=== PATIENT | male | born 1970 | race Caucasian/White ===

== ENCOUNTER 2016-05-19 14:05 | Emergency (ER) | payer OTHER ==
[~2016-05-19] VITALS: Ht 172.7 cm; Wt 204.0 kg
[~2016-05-19 14:05] MED LIST: ACET-1256 PO; MULT-506 PO; NAPR1TAB9 PO; OXGN; TEST1DIS TOP
[2016-05-19 14:08] VITALS: TEMP 36.9; Ht 172.7 cm; Wt 204.0 kg
[2016-05-19] MEDS ORDERED: CEPH500C2 PO (15:10)
[2016-05-19 15:19] VITALS: BP 141/86; PULSE 73; O2SAT 98
--- NOTE | 2016-05-20 21:45 | EMERGENCY ROOM VISIT NOTE ---
ED Visit Note First contact with patient: 14:19 CHIEF COMPLAINT: Wound Infection. HISTORY OF PRESENT ILLNESS: Mr. Javier is an 45-year-old white male who ambulates into the complaining of a ruptured abscess on his right leg. Patient reports a proximally 6 month ago he noted a soft tissue mass over the posterior aspect of the right knee. He was seen by his PCP and was told it was an infected hair follicle. Initially it was erythematous on initial evaluation. He was given antibiotics and the erythema resolved but the her follicle did not resolve. After the antibiotics he was pain and symptom-free no referral was made. Patient reports that approximately 7:30 AM this morning, approximately 7 hours ago, he reports event the knee felt a popping sensation and had a combination of possibly an bloody drainage from the wound. He reports since that time he can the wound continues to bleed. He reports he tried to and direct pressure but was unsuccessful. He has no additional symptoms including pain in the area of the infected hair follicle, fevers, chills, knee pain, lower leg weakness/ numbness/tingling, abdominal pain, nausea, vomiting, decreased appetite, upper respiratory tract symptoms. REVIEW OF SYSTEMS: As noted above in History of Present Illness; a body systems were reviewed with the patient and found to be negative unless noted above otherwise. PAST MEDICAL HISTORY: As noted above and (1) Borderline hypertension (2) Hypoxia (3) Pneumonia CURRENT MEDICATION: Medications Dose Route/Sig Max Daily Dose Days Date Category Tylenol (Acetaminophen) 500 Mg Tab 1,000 Mg PO DIRECTED PRN 08/12/15 Reported Aleve (Naproxen) 220 Mg Tab 220 Mg PO DIRECTED PRN 08/12/15 Reported Multivitamin (Multivitamins) Tab 1 Tab PO DAILY 08/12/15 Reported Androderm (Testosterone) 4 Mg/24 Hr Dis 4 Mg TOP Q24H 08/12/15 Reported ALLERGIES TO MEDICATION: Patient denies. SOCIAL HISTORY: Patient is not employed; his and feels safe in his home environment; he denies tobacco and alcohol use. PHYSICAL EXAM: Vital Signs: Date Time Temp Pulse Resp B/P Pulse Ox O2 Delivery O2 Flow Rate FiO2 05/19/16 15:19 73 20 141/86 98 05/19/16 14:08 36.9 82 20 157/94 96 Room Air General: 45 year-old male in no acute distress, nontoxic appearing, afebrile and hemodynamically stable. Neurological: Awake, alert and oriented to person, place and time. Answering questions appropriately and following commands. Skin: Warm, dry and pink. Right Lower Leg: Over the posterior aspect of the knee patient has what appears to be a ruptured abscess. There is mild erythema around the abscess. There is no active bleeding or drainage. The area is slightly indurated but is not fluctuant and there is no pointing. No signs of lymphangitis. Thorax: Lungs sounds are clear to auscultation and equal bilaterally with symmetrical chest wall movement. Abdomen: Obese, soft and nontender. Positive bowel sounds in all quadrants. No guarding or rigidity. Right Lower Extremity: Please note SKIN above. No gross bony deformity. No tenderness throughout the knee. Negative ballottement test. Full range of motion in flexion and extension of the injury assistance. Throughout the lower leg the skin was warm and pink and capillary refill is brisk. No calf tenderness or cords. ED COURSE: Patient is assessed as noted above. The area where the patient's abscess was present was cleansed with antibacterial soap and water and a sterile bacitracin dressing was applied. Patient was educated about his condition and instructed on his treatment plan; he verbalized understanding and agreement with this plan. CLINICAL IMPRESSION: Ruptured abscess right posterior knee. DISPOSITION: Patient discharged to home in stable condition; prior to departure he was reassessed and subjectively reported he remained pain and symptom-free. PLAN: Patient was encouraged use ibuprofen or acetaminophen as needed for pain. Patient was prescribed Keflex 3 times a day for 5 days for antibiotic coverage. Wound care and signs of infection were discussed with the patient. Patient was encouraged to follow-up with his family physician for recheck in 3- 4 days. Patient was encouraged return the ED for worsening/uncontrolled pain, signs of infection, return of bleeding or pus like drainage or any new/concerning symptoms.
== END 2016-05-19 15:20 | disposition home or self-care (01) ==
LOC: C.EDB 14:06 → C.EDD 15:20
DX: L02.415 Cutaneous abscess of right lower limb (principal); I10 Essential (primary) hypertension

== ENCOUNTER → 2016-08-23 | Outpatient (CLI) | payer OTHER ==
[~2016-08-23] MED LIST changes: +CEPH500C PO; +CEPH500C2 PO; -OXGN
[2016-08-23 15:14] LABS: BLOOD UREA NITROGEN 16 mg/dl (7-18); BUN/CREATININE RATIO 23.6 (10-20); CARBON DIOXIDE 30 mmol/L (21-32); CHLORIDE 104 mmol/L (98-107); CREATININE 0.66 mg/dl (0.60-1.40); GLUCOSE 95 mg/dl (70-99); SODIUM 140 mmol/L (136-145)
[2016-08-23 15:20] LABS: ESTIMATED AVERAGE GLUCOSE 120 mg/dl; HA1C FLAG Normal (Normal)
[2016-08-23 15:31] LABS: CALCIUM 9.8 mg/dl (8.5-10.1)
== END | disposition home or self-care (01) ==
LOC: C.LABBC 09:17
PROVIDERS: ATTEND Family Medicine
DX: R73.03 Prediabetes (principal)

== ENCOUNTER 2016-12-11 12:04 | Emergency (ER) | payer OTHER ==
[~2016-12-11 12:04] MED LIST changes: -CEPH500C PO; -CEPH500C2 PO
[2016-12-11 12:09] VITALS: TEMP 36.7; Ht 172.7 cm
--- NOTE | 2016-12-11 12:52 | EMERGENCY ROOM VISIT NOTE ---
History Report prepared by Cherelleibcherelle: Lilly Triana Under the Supervision of: Dr. Yrn Owusu M.D. First contact with patient: 12:33 Chief Complaint: WOUND INFECTION Stated Complaint: INFECTED, PAINFUL WOUND IN LEG Nursing Triage Summary: Pt reports wound to back of LLE. Reports it has become increasingly painful and has begun seeping. History of Present Illness The patient is a 46 year old male who presents to the Emergency Room with complaints of a worsening infection. He reports he first noticed a wound on his left, lower leg 2 weeks ago. He rates his discomfort as a 3/10 in severity. Palpation worsens his pain. The patient states he is pre-diabetic. He notes the wound has been seeping over the past few days. He is still able to walk on the leg. He denies any recent fevers, chills, cough or cold symptoms, abdominal pain , nausea or vomiting. The patient does admit he has experienced abscesses in his bilateral knees previously. They were treated with antibiotics in the past. Source of History: patient Onset: 2 weeks [employer]AK[employer] WORK[employer] Position: leg (left) Symptom Intensity: 3/10 Timing: worsening Modifying Factors (Worsening): other (palpation) Associated Symptoms: No fevers, No chills, No cough (cough or cold symptoms) , No nausea, No vomiting, No abdominal pain Review of Systems See HPI for pertinent positives and negatives. A total of ten systems were reviewed and were otherwise negative. Past Medical & Surgical Medical Problems: (1) Borderline hypertension (2) Hypoxia (3) Pneumonia Social History Smoking Status: Never Smoker Alcohol Use: occasionally Drug Use: none Marital Status: Housing Status: lives with family Occupation Status: unemployed Current/Historical Medications Scheduled Cephalexin Monohydrate (Keflex), 500 MG PO QID Multivitamin (Multivitamin), 1 TAB PO DAILY Testosterone (Androderm), 4 MG TOP Q24H Scheduled PRN Acetaminophen (Tylenol), 1,000 MG PO DIRECTED PRN for Pain or Fever Naproxen (Aleve), 220 MG PO DIRECTED PRN for Pain Allergies Coded Allergies: No Known Allergies (Unverified , 12/11/16) Physical Exam Vital Signs Date Time Temp Pulse Resp B/P (MAP) Pulse Ox O2 Delivery O2 Flow Rate FiO2 12/11/16 14:39 70 16 132/74 97 Room Air 12/11/16 13:30 71 20 131/84 97 Room Air 12/11/16 12:09 36.7 80 20 147/84 92 Room Air Physical Exam GENERAL: Awake, alert, morbidly obese, in no distress HENT: Normocephalic, atraumatic. Oropharynx unremarkable. EYES: Normal conjunctiva. Sclera non-icteric. NECK: Supple. No nuchal rigidity. FROM. No JVD. RESPIRATORY: Clear to auscultation. CARDIAC: Regular rate, normal rhythm. Extremities warm and well perfused. Pulses equal. ABDOMEN: Soft, non-distended. No tenderness to palpation. No rebound or guarding. No masses. RECTAL: Deferred. MUSCULOSKELETAL: Chest examination reveals no tenderness. The back is symmetrical on inspection without obvious abnormality. There is no CVA tenderness to palpation. No joint edema. LOWER EXTREMITIES: 2+ edema in the right leg, 3+ edema in the left leg, however it is mostly centered around the lower calf, down to the foot, 3 cm area of induration in the distal posterior calf with mild tenderness without fluctuance. Otherwise mild erythema and warmth from distal lower leg to foot. Distal pms intact. NEURO: Normal sensorium. No sensory or motor deficits noted. SKIN: No rash or jaundice noted. Medical Decision & Procedures ER Provider Diagnostic Interpretation: Radiology results as stated below per my review and radiologist interpretation: LEFT TIBIA/FIBULA 2 VIEWS ROUTINE CLINICAL HISTORY: Cellulitis. Possible osteomyelitis COMPARISON: None. DISCUSSION: There is diffuse soft tissue edema. Degenerative changes are present within the knee. There are no acute fractures. There are no erosive or destructive lesions. There is no conventional radiographic evidence of osteomyelitis. IMPRESSION: Diffuse soft tissue swelling/edema. No evidence conventional radiographic of acute osteomyelitis. Electronically signed by: Rick Francis M.D. 12/11/2016 1:11 PM Medications Administered Medications (Trade) Dose Ordered Sig/Renetta Route Start Time Stop Time Status Last Admin Dose Admin Cephalexin Monohydrate (Keflex Cap) 500 mg NOW ONCE PO 12/11/16 14:45 12/11/16 14:46 DC 12/11/16 14:39 500 MG ED Course 1244: The patient was evaluated in room C10. A complete history and physical exam was performed. 1445: Keflex 500 mg PO. 1535: I reevaluated the patient. He is feeling better. I discussed his results and discharge instructions and he verbalized complete understanding and agreement. Medical Decision I reviewed the patient's past medical history, medications, and the nursing notes as described above. The differential diagnoses considered include cellulitis, osteomyelitis, abscess , worsening venous stasis, less likely DVT. The patient is a 46 yo gentleman who presents to the ED with left lower leg redness and swelling per HPI. On arrival the patient is in NAD, AFVSS. Exam of LLE with erythema, warmth, and edema (more than baseline) extending from distal lower leg to foot. Passive ROM without discomfort. Negative Qamar's making dvt unlikley. Moreover, posterior lower leg with 3cm area of induration without underlying fluctuance. Bedside US negative for abscess but with soft tissue cobblestoning c/w cellulitis. Xray negative for osseous involvement. Considering well-appearing no indication for labs at this time for simple cellulitis. Findings and plan for follow-up d/w patient. Patient agreeable and d /c'd per discharge instructions. Medication Reconcilliation Current Medication List: was personally reviewed by me Blood Pressure Screening Patient's blood pressure: Elevated blood pressure Blood pressure disposition: Elevated BP felt to be situational Impression Primary Impression: Cellulitis Scribe Attestation The scribe's documentation has been prepared under my direction and personally reviewed by me in its entirety. I confirm that the note above accurately reflects all work, treatment, procedures, and medical decision making performed by me. Departure Information Dispostion Home / Self-Care Prescriptions Cephalexin Monohydrate (Keflex) 500 Mg Cap 500 MG PO QID for 10 Days, #40 CAP Prov: Yrn Owusu M.D. 12/11/16 Referrals Shanti Olson MD (PCP) Patient Instructions Cellulitis Dc, My [facility] Additional Instructions Please follow up with your primary care physician in the next 1-3 days. Your leg has a skin infection. Take antibiotics as prescribed. Otherwise, your exam and x-ray did not show signs of an emergent condition. Return to the emergency department for worsening symptoms as described in the accompanying instructions.
--- NOTE | 2016-12-11 13:13 | DIAGNOSTIC IMAGING REPORT ---
LEFT TIBIA/FIBULA 2 VIEWS ROUTINE CLINICAL HISTORY: Cellulitis. Possible osteomyelitis COMPARISON: None. DISCUSSION: There is diffuse soft tissue edema. Degenerative changes are present within the knee. There are no acute fractures. There are no erosive or destructive lesions. There is no conventional radiographic evidence of osteomyelitis. IMPRESSION: Diffuse soft tissue swelling/edema. No evidence conventional radiographic of acute osteomyelitis. Electronically signed by: Rick Francis M.D. 12/11/2016 1:11 PM Dictated Date/Time: 12/11/2016 1:10 PM
[2016-12-11] MEDS ORDERED: CEPH500C PO (14:37)
[2016-12-11 14:39] VITALS: BP 132/74; PULSE 70; O2SAT 97
[2016-12-11] MEDS ORDERED: CEPHALEXIN MONOHYDRATE 250 MG CAP PO ONE (14:45)
== END 2016-12-11 14:51 | disposition home or self-care (01) ==
LOC: C.EDB 12:05 → C.EDC 14:51
DX: L03.116 Cellulitis of left lower limb (principal); R03.0 Elevated blood-pressure reading, without diagnosis of hypertension; R73.03 Prediabetes; Z87.01 Personal history of pneumonia (recurrent)

== ENCOUNTER → 2017-02-17 | Outpatient (CLI) | payer OTHER ==
[2017-02-17 10:41] LABS: BASO % 0.4 %; BASO ABS # 0.03 K/uL (0-0.2); COMPLETE YES; EOS % 2.4 %; HEMATOCRIT 43.3 % (42-52); IG% 0.1 %; LYMPH % 35.3 %; LYMPH ABS # 2.61 K/uL (1.2-3.4); MEAN CORPUSCULAR HEMOGLOBIN 32.6 pg (25-34); MEAN CORPUSCULAR HGB CONC 33.3 g/dl (32-36); MEAN PLATELET VOLUME 10.4 fL (7.4-10.4); MONO % 14.2 %; NEUT % 47.6 %; PLATELET COUNT 263 K/uL (130-400); RED BLOOD COUNT 4.42 M/uL (4.7-6.1); WHITE BLOOD COUNT 7.39 K/uL (4.8-10.8)
[2017-02-17 10:53] LABS: CHOLESTEROL/HDL RATIO 5.2
[2017-02-17 13:24] LABS: ESTIMATED AVERAGE GLUCOSE 114 mg/dl; HA1C FLAG Normal (Normal)
== END | disposition home or self-care (01) ==
LOC: C.LABBC 08:14
PROVIDERS: ATTEND Family Medicine
DX: R73.03 Prediabetes (principal); E78.5 Hyperlipidemia, unspecified

== ENCOUNTER → 2017-08-25 | Outpatient (CLI) | payer OTHER ==
[2017-08-25 10:54] LABS: BLOOD UREA NITROGEN 15 mg/dl (7-18); CALCIUM 9.4 mg/dl (8.5-10.1); CARBON DIOXIDE 30 mmol/L (21-32); CHOLESTEROL 193 mg/dl (0-200); CREATININE 0.71 mg/dl (0.60-1.40); GLUCOSE 89 mg/dl (70-99); POTASSIUM 4.1 mmol/L (3.5-5.1); SODIUM 139 mmol/L (136-145)
[2017-08-25 10:58] LABS: LDL CHOLESTEROL CALCULATED 123 mg/dl
[2017-08-25 11:42] LABS: HEMOGLOBIN A1C 5.7 % (4.5-5.6)
== END | disposition home or self-care (01) ==
LOC: C.LABBC 08:54
PROVIDERS: ATTEND Family Medicine
DX: R73.03 Prediabetes (principal); E78.5 Hyperlipidemia, unspecified; I10 Essential (primary) hypertension

== ENCOUNTER 2020-03-09 15:44 | Inpatient (IN) ==
[2020-03-09] MEDS ORDERED: ASPIRIN CHEW 324 MG PO STA (16:17)
[2020-03-09 16:52] LABS: Basophils # (auto) 0.03 K/uL (0-0.2); Basophils % (auto) 0.3 %; Eosinophils # (auto) 0.18 K/uL (0-0.5); Hematocrit (blood only) 43.5 % (42-52); Hemoglobin 14.1 g/dL (14.0-18.0); Immature Granulocytes # (auto) 0.02 K/uL (0.00-0.02); Immature Granulocytes % (auto) 0.2 %; Lymphocytes # (auto) 2.55 K/uL (1.2-3.4); Lymphocytes % (auto) 28.7 %; Mean Corpuscular Hemoglobin 32.3 pg (25-34); Mean Corpuscular Hgb Conc 32.4 g/dL (32-36); Mean Corpuscular Volume 99.8 fL (80-100); Mean Platelet Volume 10.2 fL (7.4-10.4); Monocytes # (auto) 1.24 K/uL (0.11-0.59); Neutrophils # (auto) 4.85 K/uL (1.4-6.5); Neutrophils % (auto) 54.8 %; Platelet Count 259 K/uL (130-400); RDW Coefficient of Variation 13.7 % (11.5-14.5); Red Blood Count 4.36 M/uL (4.7-6.1); White Blood Count 8.87 K/uL (4.8-10.8)
[2020-03-09 17:06] LABS: Partial Thromboplastin Ratio 0.9; Prothrombin Time 10.2 Seconds (9.0-12.0)
[2020-03-09 17:11] LABS: Alanine Aminotransferase 26 U/L (12-78); Albumin Level 3.2 gm/dl (3.4-5.0); Aspartate Aminotransferase 19 U/L (15-37); BUN Creatinine Ratio 26.3 (10-20); Blood Urea Nitrogen 20 mg/dl (7-18); Calcium 8.6 mg/dl (8.5-10.1); Carbon Dioxide 32 mmol/L (21-32); Chloride 104 mmol/L (98-107); Creatinine Clr Calc Pharmacy 233.1 ml/min; Est GFR (African American) 126.6; Est GFR (Non-African American) 109.2; Glucose 115 mg/dl (70-99); Lipase 100 U/L (73-393); Potassium 3.6 mmol/L (3.5-5.1); Sodium 142 mmol/L (136-145)
[2020-03-09 17:16] LABS: Albumin Globulin Ratio 0.8 (0.9-2); Alkaline Phosphatase 56 U/L (45-117); Bilirubin,Total 0.2 mg/dl (0.2-1); Globulin 3.8 gm/dl (2.5-4.0); Troponin I < 0.015 ng/ml (0-0.045)
--- NOTE | 2020-03-09 17:23 | XRay Report ---
XR chest 1V portable HISTORY: 49 years-old Male Chest Pain acute atypical chest pain COMPARISON: Chest radiographs 08/16/2015 TECHNIQUE: Portable AP view of the chest FINDINGS: Cardiac silhouette is upper limits of normal in size, unchanged. Probable small pleural effusions. Mi ld bibasilar densities likely secondary to summation density. No pneumothorax. Bones appear grossly i ntact. IMPRESSION: 1. Mild cardiomegaly without acute process. 2. Blunting of the costophrenic angles suggests small pleural effusions. ACT 112: Negative or not required by law. The above report was generated using voice recognition software. It may contain grammatical, syntax o r spelling errors. Electronically signed by: Aydin Car M.D. 03/09/2020 5:22 PM
[2020-03-09] MEDS ORDERED: FUROSEMIDE 40 MG/4 ML VIAL IV STA (18:00)
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
--- NOTE | 2020-03-09 18:17 | Ultrasound Report ---
BILATERAL LOWER EXTREMITY VENOUS DOPPLER HISTORY: Acute pain and swelling of the bilateral lower extremities DVT COMPARISON STUDY: None. FINDINGS: There is normal compressibility, flow, and augmentation within the bilateral lower extremit y deep venous systems. The distal right femoral vein, right peroneal and distal left femoral vein are not diagnostically visualized. The study is limited secondary to patient body habitus. IMPRESSION: Limited exam as above. No sonographic evidence of deep venous thrombosis within the right or left low er extremity. ACT 112: Negative or not required by law. Electronically signed by: Aydin Car M.D. 03/09/2020 6:16 PM
[2020-03-09 18:40] LABS: Thyroid Stimulating Hormone 2.54 uIu/ml (0.300-4.500)
[2020-03-09] MEDS ORDERED: POLYETHYLENE (MIRALAX) 17 GM PACK PO PRN (21:03)
[2020-03-09] MEDS ORDERED: ALUMINUM/MAGNESIUM SUSP 30 ML UDC PO PRN (21:03)
[2020-03-09] MEDS: LOSARTAN POTASSIUM 25 MG TAB PO SCH (21:41)
[2020-03-10] MEDS: ACETAMINOPHEN 325 MG TAB PO PRN (00:39)
--- NOTE | 2020-03-10 07:48 | Electrocardiogram Report ---
Test Reason : Blood Pressure : / mmHG Vent. Rate : 098 BPM Atrial Rate : 098 BPM P-R Int : 144 ms QRS Dur : 106 ms QT Int : 344 ms P-R-T Axes : 028 024 029 degrees QTc Int : 439 ms Normal sinus rhythm Minor Non-specific intra-ventricular conduction delay Borderline ECG When compared with ECG of 12-AUG-2015 14:51, No significant change was found Confirmed by Cisco Pink ([id number]) on 03/10/2020 7:48:00 AM Referred By: REFERRED SELF Confirmed By:Cisco Pink
[2020-03-10 07:50] LABS: Basophils # (auto) 0.02 K/uL (0-0.2); Basophils % (auto) 0.3 %; Eosinophils # (auto) 0.24 K/uL (0-0.5); Eosinophils % (auto) 3.8 %; Hematocrit (blood only) 43.3 % (42-52); Hemoglobin 13.9 g/dL (14.0-18.0); Immature Granulocytes # (auto) 0.01 K/uL (0.00-0.02); Immature Granulocytes % (auto) 0.2 %; Lymphocytes # (auto) 2.15 K/uL (1.2-3.4); Lymphocytes % (auto) 33.6 %; Mean Corpuscular Hemoglobin 32.2 pg (25-34); Mean Corpuscular Hgb Conc 32.1 g/dL (32-36); Mean Corpuscular Volume 100.2 fL (80-100); Mean Platelet Volume 9.9 fL (7.4-10.4); Monocytes # (auto) 1.04 K/uL (0.11-0.59); Monocytes % (auto) 16.3 %; Neutrophils # (auto) 2.93 K/uL (1.4-6.5); Neutrophils % (auto) 45.8 %; Platelet Count 239 K/uL (130-400); RDW Coefficient of Variation 13.8 % (11.5-14.5); RDW Standard Deviation 50.4 fL (36.4-46.3); Red Blood Count 4.32 M/uL (4.7-6.1); White Blood Count 6.39 K/uL (4.8-10.8)
[2020-03-10] MEDS: FUROSEMIDE 40 MG in SYRINGE 0 ML IV SCH ×2 (08:14→16:24)
[2020-03-10 08:29] LABS: Blood Urea Nitrogen 21 mg/dl (7-18); Carbon Dioxide 34 mmol/L (21-32); Chloride 102 mmol/L (98-107); Potassium 3.6 mmol/L (3.5-5.1); Sodium 140 mmol/L (136-145)
[2020-03-10 08:30] LABS: BUN Creatinine Ratio 31.6 (10-20); Calcium 9.2 mg/dl (8.5-10.1); Creatinine Clr Calc Pharmacy 268.4 ml/min; Est GFR (African American) 134.3; Est GFR (Non-African American) 115.9; Glucose 86 mg/dl (70-99)
[2020-03-10 08:34] LABS: Troponin I < 0.015 ng/ml (0-0.045)
[2020-03-10] MEDS ORDERED: FUROSEMIDE 40 MG/4 ML VIAL IV SCH (09:00)
--- NOTE | 2020-03-10 09:31 | XCELERA ---
[id number]
--- NOTE | 2020-03-10 13:30 | Emergency Department Note ---
History of Present Illness General Chief complaint: Cardiac Assessment Stated complaint: PAIN IN RT ARM AND CHEST Time Seen by Provider: 03/09/20 15:55 Source: patient and RN notes reviewed Mode of arrival: ambulatory Limitations: no limitations History of Present Illness Provider complaint: R CP into R upper arm x 4 days intermittently Maximum Pain Intensity: 5 This pt is a 49 yo male who presents to the ED with c/o R CP off and on x 4 days intermittently. He states the pain radiates into the R upper arm and feels like a "rolling" sensation. Pt states he has been having trouble sleeping at night, he blames it on a new bed. He is able to sleep for a few hours, then awakens and moves to his chair. He denies SOB necessarily, but believes he and his may not have enough space. He does have some PEDROZA, the pain may get better with exertion however. He denies recent fevers, chills, cough, nausea, new diaphoresis. He has been under a great deal of stress, with concern for his mother and watching the news r/t COVID and the upcoming elections. He denies h/o smoking. Pt states he is a prediabetic and hypertensive. His father dies at a young age of ND. Home Medications Home Medications Medication Instructions Recorded Confirmed Type losartan 25 mg PO QPM 03/09/20 03/09/20 History Allergies Allergy/AdvReac Type Severity Reaction Status Date / Time No Known Allergies Allergy Verified 03/09/20 16:32 Past Med/Surg History Medical History RELL-inhibitor cough Erectile dysfunction Hypoventilation associated with obesity syndrome Pituitary hypogonadism Venous stasis of lower extremity Surgical History History of partial splenectomy Sleding accident as a child Family History Father Myocardial infarction Hypertension Mother Anxiety Drug abuse COPD (chronic obstructive pulmonary disease) Depression Macular degeneration Denies family history of Ovarian cancer Prostate cancer Breast cancer Colorectal cancer Social History Smoking Status: Unknown if ever smoked Second Hand Exposure: No; Hx Alcohol Use: No Hx Substance Use: No Preferred Language: Panamanian Communication Ability: Effective Visual Impairment: No Limitations Hearing Ability: Normal Deputy Commonwealth'S Attorney Required: No Beliefs That Will Affect Care: None marital status: Current Living Situation: Spouse current occupational status: disabled Other Information That Helps Us Care for You: No Feels Safe at Home: Yes Safety Concerns: Feels Safe At This Time Childhood Exposure to Second-Hand Smoke: Yes Dental Care, Regularly: No Physical Activity Frequency: Does not Exercise Seatbelt Use: sometimes Sunscreen Use: No Assistive Devices: Glasses Review of Systems See HPI for pertinent positives & negatives. and A total of 10 systems reviewed and were otherwise negative Physical Exam Vital Signs Vital Signs - 24 hr 03/09/20 15:49 03/09/20 16:03 03/09/20 16:12 Temperature 37.1 C Temperature Source Oral Pulse Rate 102 H 94 H Pulse Rate [Apical] Pulse Rate from SpO2 Sensor 95 H Respiratory Rate 22 24 Respiratory Effort / Characteristics Non-Labored Spontaneous Respiratory Depth Normal Blood Pressure 211/79 H 159/80 H Blood Pressure [Right Arm] Blood Pressure Mean 123 114 Blood Pressure Mean [Right Arm] Blood Pressure Position Sitting Pulse Oximetry 89 L 93 93 Oxygen Delivery Method Room Air Room Air Sepsis Recent Fever Within 48 Hours No Sepsis New/Unexplained Change in Mental Status N/A Sepsis Action Taken by Nursing No Action Required 03/09/20 16:19 03/09/20 16:26 Temperature Temperature Source Pulse Rate Pulse Rate [Apical] 89 Pulse Rate from SpO2 Sensor Respiratory Rate 24 Respiratory Effort / Characteristics Respiratory Depth Blood Pressure Blood Pressure [Right Arm] 159/80 H Blood Pressure Mean Blood Pressure Mean [Right Arm] 106 Blood Pressure Position Pulse Oximetry 93 93 Oxygen Delivery Method Room Air Room Air Sepsis Recent Fever Within 48 Hours Sepsis New/Unexplained Change in Mental Status Sepsis Action Taken by Nursing Vital signs reviewed. Noted to be hypertensive. General: Morbidly obese but otherwise generally ill-appearing 49 yo male, in no significant distress. HEENT: No scleral icterus, PERRLA, neck supple. Atraumatic. Cardiovascular: Regular rate and rhythm, no extra sounds. Pulmonary: Clear to auscultation bilaterally, normal work of breathing. Abdomen: Soft, obese, nontender, nondistended, positive bowel sounds. Musculoskeletal: Atraumatic, significant peripheral edema. Neurologic: Patient awake alert and oriented x 3 Skin: Warm, dry, venous status changes to BLE, no ulcerations. Course Administered Medications Acetaminophen (Acetaminophen 325 Mg Tab) 650 mg PO Q4H PRN PRN Reason: Pain or Fever Stop: 04/08/20 21:02 Last Admin: 03/10/20 00:39 Dose: 650 mg Documented by: [id number] Furosemide 40 mg/ Syringe 4 mls @ 4 mls/min IV [id number] SERVANDO Stop: 04/09/20 08:59 Last Admin: 03/10/20 08:14 Dose: 4 mls/min Documented by: [id number] Losartan Potassium (Losartan Potassium 25 Mg Tab) 25 mg PO QPM SERVANDO Stop: 04/08/20 21:02 Last Admin: 03/09/20 21:41 Dose: 25 mg Documented by: [id number] Discontinued Medications Aspirin (Aspirin Chew 324 Mg) 324 mg PO NOW STA Stop: 03/09/20 16:18 Last Admin: 03/09/20 16:47 Dose: 324 mg Documented by: [id number] Furosemide (Furosemide 40 Mg/4 Ml Vial) 40 mg IV NOW STA Stop: 03/09/20 18:01 Last Admin: 03/09/20 19:02 Dose: 40 mg Documented by: [id number] Medical Decision Making Differential Diagnosis DDx: Acute coronary syndrome, pulmonary embolus, aortic dissection, musculoskeletal pain, pneumonia, pleural effusion, pneumothorax, GERD, PUD, cholecystitis Home Medications Current Medication List: was personally reviewed by me Laboratory Data Attestation: I reviewed the patient's lab results. Result diagrams: 03/10/20 07:32 03/10/20 07:32 Lab Results 03/09/20 03/09/20 03/09/20 Range/Units 16:40 16:40 16:40 WBC 8.87 (4.8-10.8) K/uL RBC 4.36 L (4.7-6.1) M/uL Hgb 14.1 (14.0-18.0) g/dL Hct 43.5 (42-52) % MCV 99.8 (80-100) fL MCH 32.3 (25-34) pg MCHC 32.4 (32-36) g/dL RDW Std Deviation 50.0 H (36.4-46.3) fL RDW Coeff of Rodolfo 13.7 (11.5-14.5) % Plt Count 259 (130-400) K/uL MPV 10.2 (7.4-10.4) fL Immature Gran % (Auto) 0.2 % Neut % (Auto) 54.8 % Lymph % (Auto) 28.7 % [place] % (Auto) 14.0 % Eos % (Auto) 2.0 % Baso % (Auto) 0.3 % Neut # (Auto) 4.85 (1.4-6.5) K/uL Lymph # (Auto) 2.55 (1.2-3.4) K/uL [place] # (Auto) 1.24 H (0.11-0.59) K/uL Eos # (Auto) 0.18 (0-0.5) K/uL Baso # (Auto) 0.03 (0-0.2) K/uL Immature Gran # (Auto) 0.02 (0.00-0.02) K/uL PT 10.2 (9.0-12.0) Seconds INR 1.0 (0.9-1.1) APTT 24.0 (21.0-31.0) Seconds PTT Ratio 0.9 Sodium 142 (136-145) mmol/L Potassium 3.6 (3.5-5.1) mmol/L Chloride 104 (98-107) mmol/L Carbon Dioxide 32 (21-32) mmol/L Anion Gap 6.0 (3-11) BUN 20 H (7-18) mg/dl Creatinine 0.75 (0.6-1.4) mg/dl Est Cr Clr Drug Dosing 233.1 ml/min Est GFR ( Amer) 126.6 Est GFR (Non-Af Amer) 109.2 BUN/Creatinine Ratio 26.3 H (10-20) Glucose 115 H (70-99) mg/dl Calcium 8.6 (8.5-10.1) mg/dl Total Bilirubin 0.2 (0.2-1) mg/dl AST 19 (15-37) U/L ALT 26 (12-78) U/L Alkaline Phosphatase 56 (45-117) U/L Troponin I < 0.015 (0-0.045) ng/ml NT-Pro-B Natriuret Pep (0-450) pg/ml Total Protein 7.0 (6.4-8.2) gm/dl Albumin 3.2 L (3.4-5.0) gm/dl Globulin 3.8 (2.5-4.0) gm/dl Albumin/Globulin Ratio 0.8 L (0.9-2) Lipase 100 (73-393) U/L TSH (0.300-4.500) uIu/ml 03/09/20 Range/Units 16:40 WBC (4.8-10.8) K/uL RBC (4.7-6.1) M/uL Hgb (14.0-18.0) g/dL Hct (42-52) % MCV (80-100) fL MCH (25-34) pg MCHC (32-36) g/dL RDW Std Deviation (36.4-46.3) fL RDW Coeff of Rodolfo (11.5-14.5) % Plt Count (130-400) K/uL MPV (7.4-10.4) fL Immature Gran % (Auto) % Neut % (Auto) % Lymph % (Auto) % [place] % (Auto) % Eos % (Auto) % Baso % (Auto) % Neut # (Auto) (1.4-6.5) K/uL Lymph # (Auto) (1.2-3.4) K/uL [place] # (Auto) (0.11-0.59) K/uL Eos # (Auto) (0-0.5) K/uL Baso # (Auto) (0-0.2) K/uL Immature Gran # (Auto) (0.00-0.02) K/uL PT (9.0-12.0) Seconds INR (0.9-1.1) APTT (21.0-31.0) Seconds PTT Ratio Sodium (136-145) mmol/L Potassium (3.5-5.1) mmol/L Chloride (98-107) mmol/L Carbon Dioxide (21-32) mmol/L Anion Gap (3-11) BUN (7-18) mg/dl Creatinine (0.6-1.4) mg/dl Est Cr Clr Drug Dosing ml/min Est GFR ( Amer) Est GFR (Non-Af Amer) BUN/Creatinine Ratio (10-20) Glucose (70-99) mg/dl Calcium (8.5-10.1) mg/dl Total Bilirubin (0.2-1) mg/dl AST (15-37) U/L ALT (12-78) U/L Alkaline Phosphatase (45-117) U/L Troponin I (0-0.045) ng/ml NT-Pro-B Natriuret Pep 47 (0-450) pg/ml Total Protein (6.4-8.2) gm/dl Albumin (3.4-5.0) gm/dl Globulin (2.5-4.0) gm/dl Albumin/Globulin Ratio (0.9-2) Lipase (73-393) U/L TSH 2.540 (0.300-4.500) uIu/ml Imaging Data Radiologist's Impression: XR chest 1V portable HISTORY: 49 years-old Male Chest Pain acute atypical chest pain COMPARISON: Chest radiographs 08/16/2015 TECHNIQUE: Portable AP view of the chest FINDINGS: Cardiac silhouette is upper limits of normal in size, unchanged. Probable small pleural effusions. Mild bibasilar densities likely secondary to summation density. No pneumothorax. Bones appear grossly intact. IMPRESSION: 1. Mild cardiomegaly without acute process. 2. Blunting of the costophrenic angles suggests small pleural effusions. ACT 112: Negative or not required by law. The above report was generated using voice recognition software. It may contain grammatical, syntax or spelling errors. Electronically signed by: Aydin Car M.D. 03/09/2020 5:22 PM Dictated: 03/09/201720 Transcribed: 03/09/201720 BILATERAL LOWER EXTREMITY VENOUS DOPPLER HISTORY: Acute pain and swelling of the bilateral lower extremities DVT COMPARISON STUDY: None. FINDINGS: There is normal compressibility, flow, and augmentation within the bilateral lower extremity deep venous systems. The distal right femoral vein, right peroneal and distal left femoral vein are not diagnostically visualized. The study is limited secondary to patient body habitus. IMPRESSION: Limited exam as above. No sonographic evidence of deep venous thrombosis within the right or left lower extremity. ACT 112: Negative or not required by law. Electronically signed by: Aydin Car M.D. 03/09/2020 6:16 PM Dictated: 03/09/201814 Transcribed: 03/09/201814 ECG Data Attestation: I personally reviewed and interpreted this ECG as follows: Indication: + chest pain Rate (beats per minute): 98 Rhythm: + normal sinus and + other ECG Intervals/blocks: + Normal QT-c (439) ECG Natalia: + Normal ECG ST segments: + Normal ST segments ECG Findings: + Other (non-specific IVCD) Blood Pressure Blood Pressure Findings: Elevated blood pressure Blood Pressure Disposition: further management by hospitalist MDM Narrative This pt was evaluated and appears to be in no distress. IV access was obtained and lab work was drawn. Pt was given ASA 324 mg. An order for cardiac monitoring was placed and the pt is noted to be in a NSR at 94 bpm. BP was repeated and is much improved without intervention. CXR reveals cardiomegaly, although this maybe technique and habitus related. Lab work reveals a normal trop. US BLE are neg for DVT. PT is too large for CT scanner and currently PE study is not indicated. Given the patient's overall risk for cardiac disease, the hospitalist was consulted for further evaluation. Pt and his are aware of the plan and agree. Pt was given 40 mg IV lasix for diuresis. Impression & Plan Right-sided chest pain, Hypertension, benign essential, goal below 140/90, Morbid obesity with BMI of 70 and over, adult Discharge Plan Visit Data Chief Complaint: Cardiac Assessment Stated Complaint: PAIN IN RT ARM AND CHEST ED Provider: Lois Blood Discharge Problem: Right-sided chest pain, Hypertension, benign essential, goal below 140/90, Morbid obesity with BMI of 70 and over, adult Patient Disposition: Admitted As Inpatient Discharge Instructions Interventions: ED Discharge Assessment Last Done: 03/09/20 20:41
--- NOTE | 2020-03-10 20:24 | Hospitalist Progress Note ---
Date of Service March 10, 2020 Assessment & Plan (1) Pulmonary edema: patient diuresing well with lasix 40mg BID. already feels better. echo quite limited due to body habitus; low-normal EF 50-55% noted. suspect he may have diastolic dysfunction in setting of RAE/OHS. needs sleep study to dx RAE, then Rx. needs ambulatory 2-step O2 test before discharge. check BMP am. (2) Morbid obesity with BMI of 70 and over, adult: BMI 71 TSH wnl (3) Prediabetes: a1c 5.8% in November 2019. needs weight loss. (4) Hyperlipidemia LDL goal <130: LDL 137 November 2019 cont weight loss efforts (5) Hypoventilation associated with obesity syndrome: suspected (6) Hypertension, benign essential, goal below 140/90: cont ARB (7) Right shoulder pain: resolved uncertain etiology exam normal today (8) Numbness in left leg: lateral femoral cutaneous nerve syndrome? radicular from lumbar spine? no motor deficits on exam more of a nuisance at this time follow for now (9) Sleep-disordered breathing: needs formal sleep study tate (10) DVT prophylaxis: add lovenox Admission and Anticipated Discharge Date Admission Date: March 09, 2020 Subjective tele overnight wnl. patient states he feels "less full" - that is, less swelling/fluid. 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 he is uncertain of baseline dry weight. admits to severe snoring - chronic. declined using CPAP last pm. has not had formal sleep study in past. right shoulder pain improved today. main complaint is that of left lateral thigh paresthesias. started sometime overnight. not painful. no back pain. no radicular pain down leg or weakness of LLE. Review of Systems Constitutional: no fever and no anorexia Respiratory: + dyspnea on exertion Cardiovascular: no chest pain Gastrointestinal: no abdominal pain, no nausea and no vomiting Physical Exam Constitutional: + morbidly obese; no acute distress and no altered mental status ENMT: external ear and nose normal, oropharynx normal Respiratory: no respiratory distress Auscultation: + crackles Cardiovascular: Rate/Rhythm: regular rate and regular rhythm Heart Sounds: normal S1 and normal S2; no murmur Vessels: posterior tibial pulses present and dorsalis pedis pulses present Extremities: + edema (Lymphedema b/l legs and feet) Gastrointestinal (Abdomen): normal bowel sounds, soft, nontender, no hepatosplenomegaly Musculoskeletal: right shoulder - full passive ROM without pain or tenderness left hip - flexion/extension does not elicit pain Psychiatric: A+Ox3, euthymic affect Results & Data Results & Data ([facility]) Vital Signs (Past 12 Hours) Vital Signs Temp Pulse Pulse Resp BP BP Pulse Ox 03/10/20 19:47 36.8 C 87 18 117/78 92 03/10/20 15:50 36.8 C 80 20 114/70 96 03/10/20 11:01 37.0 C 70 16 155/84 H 92 03/10/20 10:27 69 Laboratory Results Laboratory Results - last 24 hr 03/10/20 03/10/20 07:32 07:32 WBC 6.39 RBC 4.32 L Hgb 13.9 L Hct 43.3 MCV 100.2 H MCH 32.2 MCHC 32.1 RDW Std Deviation 50.4 H RDW Coeff of Rodolfo 13.8 Plt Count 239 MPV 9.9 Immature Gran % (Auto) 0.2 Neut % (Auto) 45.8 Lymph % (Auto) 33.6 [place] % (Auto) 16.3 Eos % (Auto) 3.8 Baso % (Auto) 0.3 Neut # (Auto) 2.93 Lymph # (Auto) 2.15 [place] # (Auto) 1.04 H Eos # (Auto) 0.24 Baso # (Auto) 0.02 Immature Gran # (Auto) 0.01 Sodium 140 Potassium 3.6 Chloride 102 Carbon Dioxide 34 H Anion Gap 3.0 BUN 21 H Creatinine 0.65 Est Cr Clr Drug Dosing 268.4 Est GFR ( Amer) 134.3 Est GFR (Non-Af Amer) 115.9 BUN/Creatinine Ratio 31.6 H Glucose 86 Calcium 9.2 Troponin I < 0.015 PG Care Time/CCT Total # of Minutes Spent Total Time Spent with Patient: Total time spent is greater than 50% in coordination of care (as documented) at patient's floor/unit and/or counseling patient: Coding Level of Care Code 35645 Subseq Hosp Care Lvl 2 Diagnoses Pulmonary edema J81.1 Morbid obesity with BMI of 70 and over, adult E66.01; Z68.45 Prediabetes R73.03 Hyperlipidemia LDL goal <130 E78.5 Hypoventilation associated with obesity syndrome E66.2 Hypertension, benign essential, goal below 140/90 I10 Right shoulder pain M25.511 Numbness in left leg R20.0 Sleep-disordered breathing G47.30 DVT prophylaxis Z29.9
[2020-03-10] MEDS: LOSARTAN POTASSIUM 25 MG TAB PO SCH (22:12)
[2020-03-11] MEDS: ACETAMINOPHEN 325 MG TAB PO PRN (00:32)
[2020-03-11 08:35] LABS: BUN Creatinine Ratio 33.5 (10-20); Calcium 9.6 mg/dl (8.5-10.1); Creatinine Clr Calc Pharmacy 253.6 ml/min; Est GFR (African American) 134.3; Est GFR (Non-African American) 115.9; Magnesium 2.3 mg/dl (1.8-2.4); Potassium 3.3 mmol/L (3.5-5.1)
[2020-03-11] MEDS: FUROSEMIDE 40 MG in SYRINGE 0 ML IV SCH ×2 (08:56→17:26)
[2020-03-11] MEDS: POTASSIUM CHLORIDE CRTAB 20 MEQ TABCR PO SCH ×3 (09:52→20:24)
--- NOTE | 2020-03-11 12:02 | Heart Failure Consultation ---
Date of Consultation March 11, 2020 Assessment & Plan (1) Pulmonary edema: (2) Hypoventilation associated with obesity syndrome: (3) Morbid obesity with BMI of 70 and over, adult: (4) Hypertension, benign essential, goal below 140/90: (5) Sleep-disordered breathing: Patient initially presented with right shoulder pain. He has chronic dyspnea on exertion and lower extremity edema which he feels was stable prior to admission- likely multifactorial. He incidentally had small bilateral pleural effusions on his chest xray. ProBNP is 49, essentially ruling out cardiac etiology. Suspect hypervolemia secondary to RAE/OHS. RV systolic function is normal at this time. He would likely benefit from continued diuresis. He is diuresing well on Lasix 40 mg IV BID. Continue to monitor kidney function and electrolytes. He is agreeable to sleep medicine evaluation- this can be arranged as outpatient. Would recommend outpatient follow up for volume management. Recommend low sodium diet, less than 2,000 mg daily. He does not typically add salt but does not specifically pay attention to his current sodium content. He should begin daily standing weights. He should notify the program of 2+ lb weight gain overnight or 5+ lb in one week. Patient will need to check the weight limitation on his home scale. Encourage weight loss through diet and exercise as able. We discussed the goals of the program and he is agreeable to participation. Anticipate short term follow up through the 30 day transition phase. Disposition: Will continue to follow during hospitalization. Follow up with the HF program on 03/17 at 10:30 am. History of Present Illness Attending Physician: Tavo Thacker Patient is a 49 year old male with past medical history of morbid obesity, pre- diabetes, hyperlipidemia, hypertension, and depression. 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 He presented to the ED on 03/09/20 for right shoulder pain x 4 days. He has an extensive family history of cardiac disease and was concerned it could be cardiac. He has mild shortness of breath with exertion that has been chronic and stable. He did not some mild increased lower extremity edema. He denies orthopnea or PND. He denied cough, fever, wheezing. Chest xray demonstrated mild cardiomegaly and small pleural effusions. ProBNP was 49. EKG was normal sinus at 98 bpm. Troponin was normal. Echocardiogram was technically difficult, LV systolic function is low/normal, 50-55%. He was treated with IV diuretics in the ED. Today patient is sitting comfortably at the bedside. He continues to deny any heart failure related symptoms. He admits to daytime fatigue, loud snoring. RAE/OHS suspected. Patient has declined CPAP therapy thus far. He's responding well to Lasix 40 mg BID. He's negative 2.6 L overnight. Weight is 477 lb on the scale. He denies chest pain, cough, fever, wheezing. SocHx: Patient lives at home with his Ila in [place] [employer]. 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 He denies alcohol or tobacco use. FamHx: Father, , [place] age 60s. Allergies Allergy/AdvReac Type Severity Reaction Status Date / Time No Known Allergies Allergy Verified 03/09/20 16:32 Home Medications Home Medications Medication Instructions Recorded Confirmed Type losartan 25 mg PO QPM 03/09/20 03/09/20 History Patient History Medical History (Updated 03/11/20 @ 12:42 by Christa Drake PA-C) RELL-inhibitor cough Erectile dysfunction Hypoventilation associated with obesity syndrome Pituitary hypogonadism Venous stasis of lower extremity Surgical History History of partial splenectomy Sleding accident as a child Family History Father Myocardial infarction Hypertension Mother Anxiety Drug abuse COPD (chronic obstructive pulmonary disease) Depression Macular degeneration Denies family history of Ovarian cancer Prostate cancer Breast cancer Colorectal cancer Social History Smoking Status: Unknown if ever smoked Second Hand Exposure: No; Hx Alcohol Use: No Hx Substance Use: No Preferred Language: Estonian Communication Ability: Effective Visual Impairment: No Limitations Hearing Ability: Normal Sapp[place] Stylus Grinder Required: No Beliefs That Will Affect Care: None marital status: Current Living Situation: Spouse current occupational status: disabled Feels Safe at Home: Yes Childhood Exposure to Second-Hand Smoke: Yes Dental Care, Regularly: No Physical Activity Frequency: Does not Exercise Seatbelt Use: sometimes Sunscreen Use: No Assistive Devices: Glasses Review of Systems Review of Systems: As noted in HPI. All other ROS are reviewed and otherwise negative at this time. Physical Exam Physical Exam: Constitutional: Alert, oriented, in no acute distress. Morbidly obese. HEENT: Head is atraumatic and normocephalic. EOMs intact. Sclera anicteric. Face is symmetric. No perioral cyanosis. Mucous membranes moist. Neck: Supple, no JVD Pulmonary: Normal respiratory effort, clear to auscultation bilaterally. No wheezes, rales. Cardiac: Regular rate and rhythm. Normal S1 and S2, no gallops, no rubs, no murmurs Extremities: 2+ radial pulses bilaterally. 2+ posterior tibialis pulses bilaterally. 1+ pitting edema to the knees. No cyanosis or clubbing. Venous stasis changes. Abdomen: Obese. Normal bowel sounds, soft, non-tender, no abdominal mass palpated Skin: Normal skin color, turgor. Hyperpigmentation of the lower legs R>L, no rash, no skin lesions Neurological: Patient is awake, alert, and oriented. Pleasant and cooperative. Answers questions appropriately. Speech is clear. Normal movement in all 4 extremities. Results & Data ([facility]) Vital Signs (Past 12 Hours) Vital Signs Temp Pulse Pulse Resp BP BP Pulse Ox 03/11/20 09:02 65 03/11/20 07:41 97.7 F 72 20 127/71 92 03/11/20 04:01 97.9 F 82 20 125/85 90 03/11/20 02:33 83 Coding Level of Care Code 40979 Initial Inpt Care Lvl 3 Diagnoses Pulmonary edema J81.1 Hypoventilation associated with obesity syndrome E66.2 Morbid obesity with BMI of 70 and over, adult E66.01; Z68.45 Hypertension, benign essential, goal below 140/90 I10 Sleep-disordered breathing G47.30
[2020-03-11 14:19] LABS: Folate (Folic Acid) 19.74 ng/ml (>5.38)
[2020-03-11] MEDS: LIDOCAINE 5% 1 PATCH TD SCH (15:34)
--- NOTE | 2020-03-11 18:40 | Hospitalist Progress Note ---
Date of Service March 11, 2020 Assessment & Plan (1) Pulmonary edema: patient diuresing well with lasix 40mg BID. echo quite limited due to body habitus; low-normal EF 50-55% noted. suspect he may have diastolic dysfunction in setting of RAE/OHS. needs sleep study to dx RAE, then Rx. needs ambulatory 2-step O2 test before discharge. cont IV diuresis. BMP am. (2) Morbid obesity with BMI of 70 and over, adult: BMI >70 TSH wnl (3) Prediabetes: a1c 5.8% in November 2019. needs weight loss. (4) Hyperlipidemia LDL goal <130: LDL 137 November 2019 cont weight loss efforts (5) Hypoventilation associated with obesity syndrome: suspected 2-step before discharge (6) Hypertension, benign essential, goal below 140/90: cont ARB add toprol xl in am (7) Right shoulder pain: resolved etiology uncertain (8) Numbness in left leg: lateral femoral cutaneous nerve syndrome? radicular from lumbar spine? b12 deficiency? no motor deficits on exam add lidoderm patches (9) Vitamin B12 deficiency: likely pernicious anemia given his age and normal diet vitamin B12 1000mcg daily while hospitalized then oral B12 upon discharge (10) Sleep-disordered breathing: needs formal sleep study tate spoke with case management about referral (11) DVT prophylaxis: ambulation anticipate d/c in am with PO lasix Admission and Anticipated Discharge Date Admission Date: March 09, 2020 Subjective tele wnl overnight. patient feeling well. no complaints. denies any dyspnea or orthopnea. Review of Systems Constitutional: no fatigue and no anorexia Respiratory: no cough, no chest congestion, no dyspnea, no sputum production and no wheezing Cardiovascular: no chest pain, no dyspnea on exertion, no orthopnea and no paroxysmal nocturnal dyspnea Gastrointestinal: no abdominal pain Neurologic: + paresthesia (left thigh paresthesias remain ) Physical Exam Constitutional: + morbidly obese; no acute distress and no altered mental status ENMT: external ear and nose normal, oropharynx normal Respiratory: no respiratory distress Auscultation: + crackles (mild - bases ) Cardiovascular: Rate/Rhythm: regular rate and regular rhythm Heart Sounds: normal S1 and normal S2; no murmur Vessels: posterior tibial pulses present and dorsalis pedis pulses present Extremities: + edema (Lymphedema b/l legs and feet - improved ) Gastrointestinal (Abdomen): normal bowel sounds, soft, nontender, no hepatosplenomegaly Psychiatric: A+Ox3, euthymic affect Results & Data Results & Data ([facility]) Vital Signs (Past 12 Hours) Vital Signs Temp Pulse Pulse Resp BP BP Pulse Ox 03/11/20 15:20 36.7 C 84 20 161/98 H 93 03/11/20 15:00 83 03/11/20 09:02 65 03/11/20 07:41 36.5 C 72 20 127/71 92 Laboratory Results Laboratory Results - last 24 hr 03/11/20 03/11/20 07:46 07:46 Sodium 139 Potassium 3.3 L Chloride 101 Carbon Dioxide 32 Anion Gap 6.0 BUN 22 H Creatinine 0.65 Est Cr Clr Drug Dosing 253.6 Est GFR ( Amer) 134.3 Est GFR (Non-Af Amer) 115.9 BUN/Creatinine Ratio 33.5 H Glucose 91 Calcium 9.6 Magnesium 2.3 Vitamin B12 223 Folate 19.74 PG Care Time/CCT Total # of Minutes Spent Total Time Spent with Patient: Total time spent is greater than 50% in coordination of care (as documented) at patient's floor/unit and/or counseling patient: Coding Level of Care Code 30086 Subseq Hosp Care Lvl 2 Diagnoses Pulmonary edema J81.0 Chronicity: acute Morbid obesity with BMI of 70 and over, adult E66.01; Z68.45 Prediabetes R73.03 Hyperlipidemia LDL goal <130 E78.5 Hypoventilation associated with obesity syndrome E66.2 Hypertension, benign essential, goal below 140/90 I10 Right shoulder pain M25.511 Chronicity: acute Numbness in left leg R20.0 Vitamin B12 deficiency E53.8 Sleep-disordered breathing G47.30 DVT prophylaxis Z29.9 (1) Pulmonary edema Chronicity: acute Qualified Code(s): J81.0 - Acute pulmonary edema (2) Right shoulder pain Chronicity: acute Qualified Code(s): M25.511 - Pain in right shoulder
[2020-03-11] MEDS: LOSARTAN POTASSIUM 25 MG TAB PO SCH (20:26)
[2020-03-11] MEDS: CYANOCOBALAMIN 1000 MCG/ML VIAL IM SCH (21:32)
[2020-03-12 07:42] LABS: BUN Creatinine Ratio 38.7 (10-20); Creatinine Clr Calc Pharmacy 266.4 ml/min; Est GFR (Non-African American) 117.4; Potassium 3.6 mmol/L (3.5-5.1)
[2020-03-12] MEDS: FUROSEMIDE 40 MG in SYRINGE 0 ML IV SCH (08:14)
[2020-03-12] MEDS: POTASSIUM CHLORIDE CRTAB 20 MEQ TABCR PO SCH ×2 (08:15→14:51)
[2020-03-12] MEDS: CYANOCOBALAMIN 1000 MCG/ML VIAL IM SCH (08:15)
[2020-03-12] MEDS: LIDOCAINE 5% 1 PATCH TD SCH ×2 (08:15→08:17)
[2020-03-12] MEDS ORDERED: METOPROLOL SUCC 25MG EXT REL TAB PO SCH (09:00)
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
== END 2020-03-12 14:50 | disposition home or self-care (01) | DRG 206 ==
LOC: ED 15:44 → SUATTDRO 18:49 → 2N 18:49